=== PATIENT | female | born 1990 | race Caucasian/White ===

== ENCOUNTER 2017-08-29 07:34 | Emergency (ER) | payer MEDICAID, OTHER ==
[~2017-08-29] VITALS: Ht 154.9 cm; Wt 64.0 kg
[2017-08-29] MEDS ORDERED: ACETAMINOPHEN 325MG TABLET PO STA (08:16)
[2017-08-29] MEDS ORDERED: KETOROLAC 60MG/2ML VIAL IM STA (08:16)
[2017-08-29] MEDS ORDERED: ONDANSETRON 4MG ODT PO STA (08:16)
[2017-08-29] MEDS ORDERED: FAMOTIDINE 20MG TABLET PO ONE (08:45)
[2017-08-29 09:09] VITALS: BP 100/69
== END 2017-08-29 10:08 | disposition home or self-care (01) ==
LOC: ER 08:06
DX: R51 Headache (principal); R07.89 Other chest pain
CPT/HCPCS: 71045; 81025; 93005; 96372; 99284; J1885; Q0162

== ENCOUNTER 2024-08-12 18:48 | Emergency (ER) | payer MEDICAID, OTHER ==
[~2024-08-12] VITALS: Ht 154.9 cm; Wt 63.0 kg
[2024-08-12 18:50] VITALS: O2SAT 97
[2024-08-12 18:54] VITALS: BP 105/66; PULSE 96; RESP 16; TEMP 36.7; O2SAT 99
[2024-08-12] MEDS ORDERED: METH-653 MT (20:41)
[2024-08-12] MEDS ORDERED: IBUP-2029 MT (20:41)
== END 2024-08-12 20:58 | disposition home or self-care (01) ==
LOC: ER 18:48
DX: S33.5XXA Sprain of ligaments of lumbar spine, initial encounter (principal); Z98.890 Other specified postprocedural states; Z79.899 Other long term (current) drug therapy; X58.XXXA Exposure to other specified factors, initial encounter; Y93.89 Activity, other specified; Y92.89 Other specified places as the place of occurrence of the external cause; Y99.8 Other external cause status
CPT/HCPCS: 99283

== ENCOUNTER 2024-08-18 12:08 | Emergency (ER) | payer MEDICAID, OTHER ==
[~2024-08-18] VITALS: Ht 154.9 cm; Wt 70.0 kg
[~2024-08-18 12:08] MED LIST: IBUP-2029 MT; METH-653 MT
[2024-08-18 12:17] VITALS: BP 109/63; PULSE 77; RESP 18; TEMP 36.9; O2SAT 100; O2SAT 95
[2024-08-18] MEDS: ACETAMINOPHEN 325MG TABLET PO ONE (12:45)
[2024-08-18] MEDS ORDERED: ACET-2708 MT (14:32)
== END 2024-08-18 15:01 | disposition home or self-care (01) ==
LOC: ER 12:08
DX: S82.831A Other fracture of upper and lower end of right fibula, initial encounter for closed fracture (principal); M25.571 Pain in right ankle and joints of right foot; Z90.49 Acquired absence of other specified parts of digestive tract; W18.30XA Fall on same level, unspecified, initial encounter; Y93.89 Activity, other specified; Y92.89 Other specified places as the place of occurrence of the external cause; Y99.8 Other external cause status
CPT/HCPCS: 29515; 73610; 99283